=== PATIENT | female | born 1990 | race Caucasian/White ===

== ENCOUNTER → 2018-06-01 | Outpatient (CLI) | payer OTHER ==
[~2018-06-01] MED LIST: AMOX500 PO; BIRTH CONTROL; CITA20 PO; IBUP800 PO; Norco 5-325 Ta1 EACH PO; OXYACE5T PO; PHENA200 PO; PROP10 PO; Prenatal Table1 EAC1; RANI150 PO; SULTRIDS PO
[2018-06-03 04:10] LABS: CHLAMYDIA TRACHOMATIS, NAA Negative (Negative); NEISSERIA GONORRHOEAE, NAA Negative (Negative)
== END ==
LOC: LAB SHORT 13:50 → LAB 13:50
PROVIDERS: Nurse Practitioner Family
DX: Z12.4 Encounter for screening for malignant neoplasm of cervix (principal); Z11.51 Encounter for screening for human papillomavirus (HPV)
CPT/HCPCS: 87491; 87591; G0145

== ENCOUNTER → 2018-09-25 | Outpatient (CLI) | payer OTHER ==
[2018-09-25 14:26] LABS: Candida species (DNA Probe) Negative (NEGATIVE); G. vaginalis (DNA Probe) Positive (NEGATIVE); T. vaginalis (DNA Probe) Negative (NEGATIVE)
[2018-09-27 03:37] LABS: CHLAMYDIA TRACHOMATIS, NAA Negative (Negative); NEISSERIA GONORRHOEAE, NAA Negative (Negative)
== END | disposition home or self-care (01) ==
LOC: LAB 10:27 → LAB SHORT 10:27
PROVIDERS: Obstetrics & Gynecology
DX: Z11.3 Encounter for screening for infections with a predominantly sexual mode of transmission (principal); N76.0 Acute vaginitis
CPT/HCPCS: 87480; 87491; 87510; 87591; 87660

== ENCOUNTER → 2019-01-15 | Outpatient (CLI) | payer OTHER ==
[~2019-01-15] MED LIST changes: +SUMA25 PO; +TRAZ50 PO
[2019-01-15 13:19] LABS: BASOPHILS ABSOLUTE AUTO 0.04 K/mm3 (0.00-0.23); BASOPHILS PERCENT AUTO 1 % (0-2); EOSINOPHILS ABSOLUTE AUTO 0.06 K/mm3 (0.00-0.68); EOSINOPHILS PERCENT AUTO 1 % (0-6); Hematocrit 44.2 % (33.0-51.0); Hemoglobin 14.2 g/dL (11.5-16.0); IMMATURE GRAN ABSOLUTE AUTO 0.02 K/mm3 (0.00-0.10); IMMATURE GRAN PERCENT AUTO 0 % (0-1); LYMPHOCYTES ABSOLUTE AUTO 2.42 K/mm3 (0.84-5.20); LYMPHOCYTES PERCENT AUTO 28 % (21-46); MONOCYTES ABSOLUTE AUTO 0.52 K/mm3 (0.16-1.47); MONOCYTES PERCENT AUTO 6 % (4-13); Mean Corpuscular HGB 29.8 pg (26.0-34.0); Mean Corpuscular HGB Conc 32.1 g/dL (31.5-36.5); Mean Corpuscular Volume 93 fL (80-100); Mean Platelet Volume 10.5 fL (9.1-12.4); NEUTROPHILS ABSOLUTE AUTO 5.72 K/mm3 (1.96-9.15); NEUTROPHILS PERCENT AUTO 65 % (41-73); Platelet Count 314 K/mm3 (150-400); RDW Coefficient Variation 12.1 % (11.7-14.2); RDW Standard Deviation 41.3 fL (35.1-46.3); Red Blood Cell Count 4.76 M/mm3 (3.80-5.20); White Blood Cell Count 8.78 K/mm3 (4.00-11.30)
== END | disposition home or self-care (01) ==
LOC: LAB SHORT 12:56 → LAB 12:56
PROVIDERS: Obstetrics & Gynecology
DX: Z01.812 Encounter for preprocedural laboratory examination (principal); N80.9 Endometriosis, unspecified; R10.2 Pelvic and perineal pain
CPT/HCPCS: 84703; 85025

== ENCOUNTER 2019-01-18 07:29 | Day surgery (SDC) | payer OTHER ==
[~2019-01-18] VITALS: Ht 162.6 cm; Wt 75.2 kg
--- NOTE | 2019-01-18 08:02 | NUR ---
PT ADMITTED TO [facility]. AGREES WITH PLANNED SURGER. MEDS, ALLERGIES AND HX REVIEWED. LUNG SOUNDS CLEAR.
--- NOTE | 2019-01-18 10:35 | NUR ---
INTO STEP VIA [facility]. PT REPORTS ABDOMINAL PAIN 10/11-STATES "I'M JUST TIRED." STERI STRIPS TO ABDOMEN C/D/I. PAIGE PAD IN PLACE-NO NOTED DRAINAGE. PT OFFERED PO FLUIDS-PT REQUESTS TO "REST FOR NOW." WILL OFFER FOOD AND FLUIDS AGAIN WHEN PT MORE AWAKE.
--- NOTE | 2019-01-18 11:23 | NUR ---
TOLERATING PO WATER AND CRACKERS. WILL GIVE ORAL ANALGESIC ORDERED. Discharge instructions reviewed with patient. Patient verbalizes understanding. Copy given to patient to take home. Patient States Post-Procedure ride home has been arranged with her mom.
--- NOTE | 2019-01-18 11:26 | NUR ---
STERI STRIPS TO ABD X2 NOTED CLEAN, DRY AND INTACT. VISIBLE DRY DRAINAGE TO LEFT LATERAL STERI STIP, UMBILICAL STERI STRIP DRY WITH NO VISIBLE DRAINAGE NOTED.
--- NOTE | 2019-01-18 11:27 | NUR ---
REPORT GIVEN TO RYAN GROVE RN.
--- NOTE | 2019-01-18 12:00 | NUR ---
DISCHARGE TO HOME. PAIGE PAD SCANT AMOUNT OF BLOOD. STABLE.
--- NOTE | 2019-01-19 08:12 | NUR ---
01/19/19 0812 Maricruz Corley CHART VERIFICATIONS, EDITS.
== END 2019-01-18 12:06 | disposition home or self-care (01) ==
LOC: ORSCMMR 07:29 → ORD 10:30 → ORSCMMR 12:06
PROVIDERS: Obstetrics & Gynecology
PROC: 0U5F4ZZ Destruction of Cul-de-sac, Percutaneous Endoscopic Approach (ICD-10-PCS; principal; 2019-01-18 09:00)
DX: N80.3 Endometriosis of pelvic peritoneum (principal); K21.9 Gastro-esophageal reflux disease without esophagitis; Z79.899 Other long term (current) drug therapy
CPT/HCPCS: A9270-GY; J1100; J1885; J2250; J2405; J2704; J2710; J3010; J7120

== ENCOUNTER → 2019-04-15 | Outpatient (CLI) | payer OTHER ==
[2019-04-15 17:04] LABS: Source, Urine Clean Catch
[2019-04-15 17:59] LABS: Bilirubin, Urine Neg (Neg); Blood, Urine 3+ (Neg); Glucose Qualitative, Urine Neg (Neg); Ketones, Urine Neg (Neg); Leukocyte Esterase, Urine 3+ (Neg); Nitrite, Urine Neg (Neg); Protein, Urine Neg (Neg); Specific Gravity, Urine 1.015 (1.003-1.022); Urobilinogen, Urine 2+ (Normal)
[2019-04-15 18:23] LABS: Appearance, Urine Clear (Clear); Color, Urine Yellow (P-Yellow)
[2019-04-15 18:24] LABS: Amorphous Mod (0-Heavy); Bacteria Many /hpf; Mucus Light (0-Heavy); Red Blood Cells, Urine 0-2 /hpf (0-2); Squamous Epithelial Cells Many /hpf (Few)
== END | disposition home or self-care (01) ==
LOC: LAB SHORT 16:49 → LAB 16:49
PROVIDERS: Obstetrics & Gynecology
DX: R31.9 Hematuria, unspecified (principal)
CPT/HCPCS: 81001; 87086

== ENCOUNTER → 2019-07-01 | Outpatient (CLI) | payer OTHER ==
[2019-07-02 11:13] LABS: Candida species (DNA Probe) Negative (NEGATIVE); G. vaginalis (DNA Probe) Positive (NEGATIVE); T. vaginalis (DNA Probe) Negative (NEGATIVE)
== END | disposition home or self-care (01) ==
LOC: LAB 11:30 → LAB SHORT 11:30
PROVIDERS: Obstetrics & Gynecology
DX: N76.0 Acute vaginitis (principal)
CPT/HCPCS: 87480; 87510; 87660

== ENCOUNTER 2019-09-01 20:44 | Emergency (ER) | payer OTHER ==
[~2019-09-01] VITALS: Ht 165.1 cm; Wt 74.8 kg
[2019-09-01] MEDS ORDERED: PROGESTERONE (22:36)
[2019-09-01] MEDS ORDERED: Diflucan100 MG PO (22:51)
[2019-09-01] MEDS ORDERED: ONDA4ODT MM (22:51)
[2019-09-01] MEDS ORDERED: Flonase 0.05% N16 GM (22:51)
[2019-09-01] MEDS ORDERED: Vibramycin100 MG PO (22:51)
== END 2019-09-01 23:00 | disposition home or self-care (01) ==
LOC: ER 20:44
DX: J18.9 Pneumonia, unspecified organism (principal); J01.90 Acute sinusitis, unspecified; B96.89 Other specified bacterial agents as the cause of diseases classified elsewhere; Z88.2 Allergy status to sulfonamides; Z88.6 Allergy status to analgesic agent; Z91.013 Allergy to seafood; Z91.018 Allergy to other foods; Z79.899 Other long term (current) drug therapy
CPT/HCPCS: 71046; 99283-25

== ENCOUNTER → 2020-05-16 | Outpatient (CLI) | payer BC, OTHER ==
[~2020-05-16] MED LIST changes: +Diflucan100 MG PO; +Flonase 0.05% N16 GM; +ONDA4ODT MM; +PROGESTERONE; +Vibramycin100 MG PO
[2020-05-16 15:12] LABS: Appearance, Urine Hazy (Clear); Bilirubin, Urine Neg (Neg); Blood, Urine 3+ (Neg); Color, Urine Yellow (P-Yellow); Glucose Qualitative, Urine Neg (Neg); Ketones, Urine Neg (Neg); Leukocyte Esterase, Urine 3+ (Neg); Nitrite, Urine Neg (Neg); Protein, Urine Neg (Neg); Specific Gravity, Urine 1.005 (1.003-1.022); Urobilinogen, Urine NORM (Normal); pH, Urine 6.5 (5.0-8.0)
[2020-05-16 15:47] LABS: White Blood Cells, Urine 25-50 /hpf (0-5)
[2020-05-16 15:48] LABS: Bacteria Many /hpf; Squamous Epithelial Cells Many /hpf (Few)
== END | disposition home or self-care (01) ==
LOC: LAB SHORT 13:58 → LAB 13:58
PROVIDERS: Obstetrics & Gynecology
DX: Z34.81 Encounter for supervision of other normal pregnancy, first trimester (principal)
CPT/HCPCS: 81001; 87086

== ENCOUNTER 2020-06-02 11:08 | Emergency (ER) | payer OTHER ==
[~2020-06-02] VITALS: Ht 165.1 cm; Wt 78.5 kg
[2020-06-02 12:19] LABS: BASOPHILS ABSOLUTE AUTO 0.02 K/mm3 (0.00-0.23); BASOPHILS PERCENT AUTO 0 % (0-2); EOSINOPHILS ABSOLUTE AUTO 0.03 K/mm3 (0.00-0.68); EOSINOPHILS PERCENT AUTO 0 % (0-6); Hematocrit 41.1 % (33.0-51.0); Hemoglobin 13.4 g/dL (11.5-16.0); IMMATURE GRAN ABSOLUTE AUTO 0.02 K/mm3 (0.00-0.10); IMMATURE GRAN PERCENT AUTO 0 % (0-1); LYMPHOCYTES ABSOLUTE AUTO 1.56 K/mm3 (0.84-5.20); LYMPHOCYTES PERCENT AUTO 18 % (21-46); MONOCYTES ABSOLUTE AUTO 0.54 K/mm3 (0.16-1.47); MONOCYTES PERCENT AUTO 6 % (4-13); Mean Corpuscular HGB 30.1 pg (26.0-34.0); Mean Corpuscular HGB Conc 32.6 g/dL (31.5-36.5); Mean Corpuscular Volume 92 fL (80-100); Mean Platelet Volume 10.4 fL (9.1-12.4); NEUTROPHILS ABSOLUTE AUTO 6.57 K/mm3 (1.96-9.15); NEUTROPHILS PERCENT AUTO 75 % (41-73); Platelet Count 272 K/mm3 (150-400); RDW Coefficient Variation 12.4 % (11.7-14.2); RDW Standard Deviation 41.9 fL (35.1-46.3); Red Blood Cell Count 4.45 M/mm3 (3.80-5.20); White Blood Cell Count 8.74 K/mm3 (4.00-11.30)
[2020-06-02 12:50] LABS: Alanine Aminotransfer (ALT/SGP 19 U/L (12-78); Albumin, Blood 3.8 g/dL (3.4-5.0); Albumin/Globulin Ratio 0.9 (0.8-1.8); Alk Phos 67 U/L (50-136); Anion Gap 7 mmol/L (6-16); Aspartate Aminotrans (AST/SGOT 10 U/L (12-37); Bilirubin, Total 0.3 mg/dL (0.1-1.0); Blood Urea Nitrogen 6 mg/dL (8-24); Bun/Creatinine Ratio 12.7 (12.0-20.0); CO2, Blood 23 mmol/L (21-32); Calcium, Blood 9.1 mg/dL (8.5-10.1); Chloride, Blood 107 mmol/L (98-108); Creatinine, Blood 0.47 mg/dL (0.40-1.00); Globulin, Blood 4.3 g/dL (2.2-4.0); Glomerular Filtration Rate >60 (60-); Glucose, Blood 86 mg/dL (70-99); Potassium, Blood 3.1 mmol/L (3.5-5.5); Sodium, Blood 137 mmol/L (136-145); Total Protein, Blood 8.1 g/dL (6.4-8.2)
[2020-06-02 12:56] LABS: Beta HCG, Quantitative, Serum 34106 mIU/mL (0-3)
[2020-06-02] MEDS ORDERED: PRENATAL TABLE1 EAC2 PO (14:02)
== END 2020-06-02 15:24 | disposition home or self-care (01) ==
LOC: ER 11:08
PROVIDERS: Physician Assistant
DX: O20.0 Threatened abortion (principal); Z3A.11 11 weeks gestation of pregnancy; Z88.2 Allergy status to sulfonamides; Z88.1 Allergy status to other antibiotic agents; Z88.6 Allergy status to analgesic agent; Z91.013 Allergy to seafood; Z91.018 Allergy to other foods; Z79.899 Other long term (current) drug therapy
CPT/HCPCS: 36415; 76801; 76817; 80053; 84702; 85025; 99284-25

== ENCOUNTER 2020-12-12 06:00 | Inpatient (IN) | payer BC, OTHER ==
[~2020-12-12] VITALS: Ht 165.1 cm; Wt 84.0 kg
[~2020-12-12 06:00] MED LIST changes: +PRENATAL TABLE1 EAC2 PO
[2020-12-12] MEDS ORDERED: BENADRYL25 MG PO (06:13)
[2020-12-12 06:46] LABS: BASOPHILS ABSOLUTE AUTO 0.03 K/mm3 (0.00-0.23); BASOPHILS PERCENT AUTO 0 % (0-2); EOSINOPHILS ABSOLUTE AUTO 0.06 K/mm3 (0.00-0.68); EOSINOPHILS PERCENT AUTO 1 % (0-6); Hematocrit 32.5 % (33.0-51.0); Hemoglobin 10.4 g/dL (11.5-16.0); IMMATURE GRAN ABSOLUTE AUTO 0.02 K/mm3 (0.00-0.10); IMMATURE GRAN PERCENT AUTO 0 % (0-1); LYMPHOCYTES ABSOLUTE AUTO 2.08 K/mm3 (0.84-5.20); LYMPHOCYTES PERCENT AUTO 28 % (21-46); MONOCYTES PERCENT AUTO 5 % (4-13); Mean Corpuscular HGB 27.6 pg (26.0-34.0); Mean Corpuscular Volume 86 fL (80-100); Mean Platelet Volume 10.6 fL (9.1-12.4); NEUTROPHILS ABSOLUTE AUTO 4.89 K/mm3 (1.96-9.15); NEUTROPHILS PERCENT AUTO 65 % (41-73); Platelet Count 253 K/mm3 (150-400); RDW Coefficient Variation 13.2 % (11.7-14.2); RDW Standard Deviation 41.1 fL (35.1-46.3); Red Blood Cell Count 3.77 M/mm3 (3.80-5.20); White Blood Cell Count 7.48 K/mm3 (4.00-11.30)
[2020-12-13 06:42] LABS: Hematocrit 30.6 % (33.0-51.0); Hemoglobin 9.7 g/dL (11.5-16.0); Mean Corpuscular HGB 27.9 pg (26.0-34.0); Mean Corpuscular HGB Conc 31.7 g/dL (31.5-36.5); Mean Corpuscular Volume 88 fL (80-100); Mean Platelet Volume 10.2 fL (9.1-12.4); Platelet Count 192 K/mm3 (150-400); RDW Coefficient Variation 13.4 % (11.7-14.2); RDW Standard Deviation 43.5 fL (35.1-46.3); Red Blood Cell Count 3.48 M/mm3 (3.80-5.20); White Blood Cell Count 7.83 K/mm3 (4.00-11.30)
[2020-12-13] MEDS ORDERED: IBUP800 PO (12:59)
--- NOTE | 2020-12-13 19:02 | NUR ---
MOM D/C HOME WITH BABY, D/C INSTRUCTIONS REVIEWED AND SIGNED, MOM INSTRUCTED TO MAKE APPOINTMENTS WHEN D/C.
== END 2020-12-13 18:00 | disposition home or self-care (01) | DRG 807 ==
LOC: OBS 06:00 → BC 06:01
PROVIDERS: ADMIT Obstetrics & Gynecology
PROC: 10E0XZZ Delivery of Products of Conception, External Approach (ICD-10-PCS; principal; 2020-12-12)
PROC: 3E033VJ Introduction of Other Hormone into Peripheral Vein, Percutaneous Approach (ICD-10-PCS; 2020-12-12)
PROC: 10907ZC Drainage of Amniotic Fluid, Therapeutic from Products of Conception, Via Natural or Artificial Opening (ICD-10-PCS; 2020-12-12)
PROC: 00HU33Z Insertion of Infusion Device into Spinal Canal, Percutaneous Approach (ICD-10-PCS; 2020-12-12)
PROC: 3E0R3BZ Introduction of Anesthetic Agent into Spinal Canal, Percutaneous Approach (ICD-10-PCS; 2020-12-12)
DX: O69.81X0 Labor and delivery complicated by cord around neck, without compression, not applicable or unspecified (principal); Z37.0 Single live birth; Z3A.39 39 weeks gestation of pregnancy; Z20.822 Contact with and (suspected) exposure to COVID-19
CPT/HCPCS: 36415; 85025; 85027; 86850; 86900; 86901; A9270; J1885; J2001; J2590; J3010; J7120

== ENCOUNTER → 2021-06-15 | Outpatient (CLI) | payer BC, OTHER ==
[~2021-06-15] MED LIST changes: +BENADRYL25 MG PO
== END | disposition home or self-care (01) ==
LOC: LAB 13:44 → LAB SHORT 13:44
PROVIDERS: Obstetrics & Gynecology
DX: Z01.419 Encounter for gynecological examination (general) (routine) without abnormal findings (principal)
CPT/HCPCS: G0123

== ENCOUNTER → 2023-01-07 | Outpatient (CLI) | payer BC, OTHER ==
[2023-01-07 17:01] LABS: Source, Urine Clean Catch
[2023-01-07 18:18] LABS: Appearance, Urine Hazy (Clear); Bilirubin, Urine Neg (Neg); Blood, Urine 1+ (Neg); Color, Urine Yellow (P-Yellow); Glucose Qualitative, Urine Neg (Neg); Ketones, Urine Neg (Neg); Leukocyte Esterase, Urine 3+ (Neg); Nitrite, Urine Neg (Neg); Protein, Urine 1+ (Neg); Urobilinogen, Urine NORM (Normal)
[2023-01-07 18:35] LABS: Squamous Epithelial Cells Mod /hpf (Few); White Blood Cells, Urine 25-50 /hpf (0-5)
[2023-01-07 18:36] LABS: Amorphous Light (0-Heavy); Bacteria Many /hpf; Red Blood Cells, Urine 0-2 /hpf (0-2); Transitional Epithelial Cells Rare /hpf (0-Rare)
== END | disposition home or self-care (01) ==
LOC: LAB 16:57 → LAB SHORT 16:57
PROVIDERS: Obstetrics & Gynecology
DX: R30.0 Dysuria (principal)
CPT/HCPCS: 81001; 87086

== ENCOUNTER → 2023-02-06 | Outpatient (CLI) | payer BC, OTHER ==
[2023-02-07 09:39] LABS: Candida species (DNA Probe) Negative (NEGATIVE); G. vaginalis (DNA Probe) Negative (NEGATIVE); T. vaginalis (DNA Probe) Negative (NEGATIVE)
== END | disposition home or self-care (01) ==
LOC: LAB SHORT 15:05 → LAB 15:05
PROVIDERS: Family Medicine
DX: N76.0 Acute vaginitis (principal)
CPT/HCPCS: 87480; 87510; 87660

== ENCOUNTER → 2023-04-16 | Outpatient (CLI) | payer BC, OTHER | LOC: LAB 15:09 → LAB SHORT 15:09 | DX: O09.893 Supervision of other high risk pregnancies, third trimester (principal); Z3A.00 Weeks of gestation of pregnancy not specified | CPT/HCPCS: 87081; 87150 ==

== ENCOUNTER 2023-05-16 06:11 | Inpatient (IN) | payer BC, OTHER ==
[~2023-05-16] VITALS: Ht 165.1 cm; Wt 90.0 kg
[2023-05-16] VITALS (23 sets, daily range): BP systolic 96–169; BP diastolic 55–101
[2023-05-16 07:58] LABS: BASOPHILS ABSOLUTE AUTO 0.01 K/mm3 (0.00-0.23); BASOPHILS PERCENT AUTO 0 % (0-2); EOSINOPHILS ABSOLUTE AUTO 0.03 K/mm3 (0.00-0.68); EOSINOPHILS PERCENT AUTO 0 % (0-6); Hematocrit 36.1 % (33.0-51.0); Hemoglobin 11.7 g/dL (11.5-16.0); IMMATURE GRAN ABSOLUTE AUTO 0.02 K/mm3 (0.00-0.10); IMMATURE GRAN PERCENT AUTO 0 % (0-1); LYMPHOCYTES PERCENT AUTO 21 % (21-46); MONOCYTES ABSOLUTE AUTO 0.61 K/mm3 (0.16-1.47); MONOCYTES PERCENT AUTO 7 % (4-13); Mean Corpuscular HGB 28.4 pg (26.0-34.0); Mean Corpuscular HGB Conc 32.4 g/dL (31.5-36.5); Mean Corpuscular Volume 88 fL (80-100); Mean Platelet Volume 10.5 fL (9.1-12.4); NEUTROPHILS ABSOLUTE AUTO 6.55 K/mm3 (1.96-9.15); NEUTROPHILS PERCENT AUTO 72 % (41-73); Platelet Count 292 K/mm3 (150-400); RDW Coefficient Variation 13.7 % (11.7-14.2); RDW Standard Deviation 43.8 fL (35.1-46.3); Red Blood Cell Count 4.12 M/mm3 (3.80-5.20); White Blood Cell Count 9.12 K/mm3 (4.00-11.30)
[2023-05-17 04:14] VITALS: BP 112/67
[2023-05-17 05:42] LABS: Hematocrit 28.8 % (33.0-51.0); Hemoglobin 9.6 g/dL (11.5-16.0); Mean Corpuscular HGB 29.2 pg (26.0-34.0); Mean Corpuscular HGB Conc 33.3 g/dL (31.5-36.5); Mean Corpuscular Volume 88 fL (80-100); Mean Platelet Volume 10.4 fL (9.1-12.4); Platelet Count 179 K/mm3 (150-400); RDW Coefficient Variation 13.7 % (11.7-14.2); RDW Standard Deviation 43.7 fL (35.1-46.3); Red Blood Cell Count 3.29 M/mm3 (3.80-5.20)
[2023-05-17 07:30] VITALS: BP 100/54
[2023-05-17 15:54] VITALS: BP 129/74
[2023-05-17 19:35] VITALS: BP 129/76
[2023-05-17] MEDS ORDERED: IBU800 MG PO (22:24)
--- NOTE | 2023-05-20 14:22 | NUR ---
PPFU. PT AT [facility] W/ NB. PT STATES NB HAD SURGERY YESTERDAY AND IS RESTING AND RECOVERING. PT STATES HER LAST BM WAS TODAY. STATES HER VAGINAL BLEEDING IS DECREASING AND IS RED/PINK IN COLOR. PT DENIES HEADACHE, BLURRED VISION OR DIZZINESS. PT DENIES NUMBNESS OR TINGLING IN HER HANDS AND FEET. PT STATES SHE HAS SOME SWELLING IN HER ANKLES. PT DENIES ANY TENDER RED HOT SPOTS IN THE BACK OF HER KNEES OR CALVES. PT HAS A PPFU APPOINMENT SCHEDULED W/ OB PROVIDER. PT IS TAKING IBUPROFEN AND PNV. FURTHER LC OFFERED WHEN NB IS DISCHARGED IF PT DESIRES.
== END 2023-05-17 23:00 | disposition home or self-care (01) | DRG 807 ==
LOC: BC 06:11 → OBS 06:11 → BC 06:12 → OBS 06:40 → BC 06:43
PROVIDERS: Family Medicine; ADMIT Family Medicine
PROC: 10E0XZZ Delivery of Products of Conception, External Approach (ICD-10-PCS; principal; 2023-05-16)
PROC: 4A0HXCZ Measurement of Products of Conception, Cardiac Rate, External Approach (ICD-10-PCS; 2023-05-16)
PROC: 10H07YZ Insertion of Other Device into Products of Conception, Via Natural or Artificial Opening (ICD-10-PCS; 2023-05-16)
PROC: 3E0R3BZ Introduction of Anesthetic Agent into Spinal Canal, Percutaneous Approach (ICD-10-PCS; 2023-05-16)
PROC: 00HU33Z Insertion of Infusion Device into Spinal Canal, Percutaneous Approach (ICD-10-PCS; 2023-05-16)
DX: O42.02 Full-term premature rupture of membranes, onset of labor within 24 hours of rupture (principal); Z37.0 Single live birth; O99.214 Obesity complicating childbirth; Z3A.39 39 weeks gestation of pregnancy; Z88.8 Allergy status to other drugs, medicaments and biological substances; Z91.018 Allergy to other foods; Z91.013 Allergy to seafood; O76 Abnormality in fetal heart rate and rhythm complicating labor and delivery; O69.1XX0 Labor and delivery complicated by cord around neck, with compression, not applicable or unspecified
CPT/HCPCS: 36415; 51702; 59070; 85025; 85027; 86850; 86900; 86901; 86923; A9270; J1885; J2590; J2916; J7030; J7120

== ENCOUNTER 2023-10-08 06:17 | Day surgery (SDC) | payer BC, OTHER ==
[2023-10-08] VITALS (18 sets, daily range): BP systolic 105–158; BP diastolic 74–106
[~2023-10-08] VITALS: Ht 162.6 cm; Wt 72.8 kg
[~2023-10-08 06:17] MED LIST changes: +IBU800 MG PO; +SERT50 PO
[2023-10-08] MEDS ORDERED: CeFAZolin Sodium 2,000 MG in NS 50 ML IV SCH (06:30)
[2023-10-08] MEDS ORDERED: Lactated Ringer's 1,000 ML IV SCH ×2 (06:30→09:05)
[2023-10-08] MEDS ORDERED: Bupivacaine 0.5% HCl 5 MG/ML 30MLVIAL ONE ×2 (07:22→08:13)
[2023-10-08] MEDS ORDERED: propofoL 20 ML IV ONE (07:22)
[2023-10-08] MEDS ORDERED: Rocuronium Bromide 10 MG/ML 5ML Injection IV ONE (07:23)
[2023-10-08] MEDS ORDERED: FentaNYL Citrate 50 MCG/ML 5 ML Injection ONE (07:23)
[2023-10-08] MEDS ORDERED: Lidocaine HCl 2% 20 ML MDV ONE (07:24)
[2023-10-08] MEDS ORDERED: Dexamethasone Sod Phos 10 MG/ML 1ML VIAL ONE (07:55)
[2023-10-08] MEDS ORDERED: Morphine Sulfate 4 MG/1 ML Injection IV PRN (08:30)
[2023-10-08] MEDS ORDERED: LORazepam 2 MG/ML 1ML Injection IV PRN (08:30)
[2023-10-08] MEDS ORDERED: Labetalol HCL 5 MG/ML 4ML Injection (Single Dose) IV PRN (08:30)
[2023-10-08] MEDS ORDERED: ePHEDrine Sulfate 50 MG/ML 1ML Injection IV PRN (08:30)
[2023-10-08] MEDS ORDERED: Atropine Sulfate 0.1 MG/ML 10ML SYR IV PRN (08:35)
[2023-10-08] MEDS ORDERED: HYDROmorphone HCl/Pf 1MG SYR IV PRN ×2 (08:35→09:10)
[2023-10-08] MEDS ORDERED: Ondansetron HCl 2 MG / ML 2ML Vial IV PRN ×2 (08:35→09:05)
[2023-10-08] MEDS ORDERED: Albuterol 2.5 MG/3 ML VIAL INH PRN (08:35)
[2023-10-08] MEDS ORDERED: FentaNYL Citrate 50 MCG/ML 2 ML Injection IV PRN ×2 (08:35)
[2023-10-08] MEDS ORDERED: Sugammadex Sodium 200 MG/2ML SDV (100 MG/ML) ONE (08:42)
[2023-10-08] MEDS ORDERED: OxyCODONE HCL 5 MG TAB PO PRN (09:00)
[2023-10-08] MEDS ORDERED: Ketorolac Tromethamine 30mg Vial IV PRN ×2 (09:05→10:05)
[2023-10-08] MEDS ORDERED: Naloxone HCl 0.4MG / ML 1ML Vial IV PRN (09:05)
[2023-10-08] MEDS ORDERED: Simethicone 80 MG Chew PO PRN (09:05)
[2023-10-08] MEDS ORDERED: Metoclopramide HCl 10 MG Tab PO PRN (09:05)
[2023-10-08] MEDS ORDERED: Ondansetron 4 MG TAB PO PRN (09:05)
[2023-10-08] MEDS ORDERED: FLU VACC QS2023-24(6MOS UP)/PF 60 MCG/0.5 ML SYRINGE IM SCH (09:10)
[2023-10-08] MEDS ORDERED: Metoclopramide HCl 5MG / ML 2ML Vial IV PRN (09:10)
[2023-10-08] MEDS ORDERED: DiphenhydrAMINE HCL 25 MG Cap PO PRN (09:10)
[2023-10-08] MEDS ORDERED: Acetaminophen 500 MG Tab PO PRN (09:10)
[2023-10-08] MEDS ORDERED: FentaNYL Citrate 50 MCG/ML 2 ML Injection ONE (09:13)
[2023-10-08] MEDS ORDERED: Ketorolac Tromethamine 30mg Vial ONE (09:19)
[2023-10-08] MEDS ORDERED: HYDROmorphone HCl/Pf 1MG SYR ONE ×2 (09:32→09:58)
[2023-10-08] MEDS ORDERED: ACET500 PO (14:11)
[2023-10-08] MEDS ORDERED: ROXYBOND5 MG PO (14:12)
--- NOTE | 2023-10-08 14:21 | NUR ---
PT VOIDED, PAIN CONTROLLED W/PO PAIN MEDS AND TOLERATING PO.
--- NOTE | 2023-10-08 15:04 | NUR ---
PT MET REQUIREMENTS FOR DC. TOLERATING PO INTAKE, PO MEDS MANAGING PAIN TO TOLERABLE LEVEL. AMBULATING AND VOIDING. DESIRES TO BE DISCHARGED. DC'D IVS, CATHETERS INTACT. REVIEWED DC INSTRUCTIONS W/PT; VERBALIZED UNDERSTANDING.
--- NOTE | 2023-10-08 15:10 | NUR ---
DISCHARGED VSS. PT LEFT UNIT IN WC W/POSSESSIONS AND DC PAPERWORK IN HAND, ACCOMPANIED BY MOM TO RIDE OUTSIDE.
== END 2023-10-08 15:10 | disposition home or self-care (01) ==
LOC: ORSCMMR 06:17 → ORD 07:30 → ORSCMMR 07:30 → SURS 10:19 → ORSCMMR 15:10
PROVIDERS: Obstetrics & Gynecology
PROC: 0UT7FZZ Resection of Bilateral Fallopian Tubes, Via Natural or Artificial Opening With Percutaneous Endoscopic Assistance (ICD-10-PCS; principal; 2023-10-08 07:30)
PROC: 0UT9FZZ Resection of Uterus, Via Natural or Artificial Opening With Percutaneous Endoscopic Assistance (ICD-10-PCS; principal; 2023-10-08 07:30)
DX: N80.30 Endometriosis of pelvic peritoneum, unspecified (principal)
CPT/HCPCS: 86850; 86900; 86901; 88307; A9270; J0690; J1100; J1170; J1885; J2704; J3010; J7120